=== PATIENT | female | born 1990 | race Hispanic/Latino ===

== ENCOUNTER 2019-08-10 12:35 | Emergency (ER) | payer SELFPAY ==
[~2019-08-10 12:35] MED LIST: Iopamidol-370 76% 500 ML 1 ML ONE
[2019-08-10 13:10] LABS: #Eosinphils 0.2 thou/uL (0.0-0.7); #Lymphocytes 2.1 thou/uL (1.20-3.40); #Monocytes 0.4 thou/uL (0.11-0.59); #Neutrophils 4.6 thou/uL (1.40-6.50); %Eosinophils 2.2 % (0.0-10.0); %Lymphocytes 29.3 % (21.0-51.0); %Monocytes 4.8 % (0.0-10.0); %Neutrophils 63.7 % (42.0-75.0); Hemoglobin 12.5 g/dL (12.0-16.0); Mean Corpuscular HGB CONC 34.1 g/dL (32.0-36.0); Mean Corpuscular Hemoglobin 28.8 pg (27.0-31.0); Mean Corpuscular Volume 84.4 fL (78.0-98.0); Mean Platelet Volume 7.5 fL (7.4-10.4); Platelet Count 303 thou/uL (130-400); RBC Distribution Width 13.3 % (11.5-14.5); Red Blood Cell (RBC) Count 4.34 mill/uL (4.20-5.40); White Blood Cell (WBC) Count 7.2 thou/uL (4.8-10.8)
[2019-08-10 13:26] LABS: ALT (SGPT) 23 U/L (8-55); AST (SGOT) 29 U/L (5-34); Alkaline Phosphatase 74 U/L (40-110); Anion Gap 10 mmol/L (10-20); BUN (Urea Nitrogen) 8 mg/dL (7.0-18.7); Bilirubin, Total 0.2 mg/dL (0.2-1.2); Calc. Creatinine Clearance 0 mL/min (70-130); Calcium 9.5 mg/dL (7.8-10.44); Carbon Dioxide 26 mmol/L (22-29); Chloride 106 mmol/L (98-107); Estimated GFR-MDRD Greater than 90; Globulin 3.4 g/dL (2.4-3.5); Glucose 112 mg/dL (70-105); Lipase 15 U/L (8-78); Potassium 3.9 mmol/L (3.5-5.1); Protein, Total 7.4 g/dL (6.0-8.3); Sodium 138 mmol/L (136-145)
[2019-08-10 14:17] LABS: Bilirubin Negative (Negative); Blood, Urine Negative (Negative); Clarity Clear (Clear); Glucose, Urine (Dipstick) Normal (Negative); Leukocyte 25 Leu/uL (Negative); Nitrite Negative (Negative); Protein, Urine (Dipstick) Negative (Neg-Trace); RBC/HPF 0-3 HPF (0-3); Squamous Epithelial 0-3 HPF (0-3); Urobilinogen Normal mg/dL (Less than 2)
[2019-08-10 14:18] LABS: Bacteria/HPF 1+ HPF (None Seen); Pregnancy Test - Urine (BHCG) Negative (Negative); Pregu Control Background? CLEAR/WHITE (CLR/WHITE); Pregu Control Bar Appear? YES (CONTROL BAR); Specific Gravity 1.005 (1.002-1.036)
--- NOTE | 2019-08-10 16:25 | CT ---
EXAM: CT ABDOMEN AND PELVIS HISTORY: Epigastric pain radiating to the back. Bloating. COMPARISON: None. Procedure: Multiple contiguous axial images were obtained and a CT of the abdomen and pelvis with IV contrast. C oronal reformats were performed. FINDINGS: Lower Chest: Indeterminate 0.5 x 0.4 cm nodule Vessels: Normal caliber aorta Heart: Normal heart size. Pericardial cysts along the right heart border measuring 1.4 x 2.6 cm. Abdomen: Portal vein:Patent Gallbladder: Retracted. Liver: Hypoattenuation likely due to hepatic steatosis. No enhancing masses. Pancreas: within normal limits. Spleen: within normal limits. Adrenals: within normal limits. Kidneys: Symmetric enhancement. No obstructive uropathy. Peritoneum: No ascites or free air, no fluid collection. Bowel: Limited evaluation due to the lack of oral contrast administration. No evidence of bowel obstr uction. Ileocecal junction is unremarkable. Normal caliber appendix. Scattered fecal material in a nondistended, nondilated colon. Mesentery and Retroperitoneum: Mildly enlarged right lower quadrant mesenteric lymph nodes. Correlate for mesenteric lymphadenitis. [employer] enlarged lymph node measures 0.8 x 1.3 cm. Abdominal Wall: Small ventral abdominal wall hernia containing mesenteric fat, the level the umbilicu s. Pelvis: Reproductive Organs: Uterus and adnexal structures are unremarkable. Pelvis: No mass, lymphadenopathy, free air or free fluid. Bladder: within normal limits. Bones: within normal limits. IMPRESSION: 1. Hepatic steatosis 2. Mildly enlarged mesenteric lymph nodes. Correlate for mesenteric lymphadenitis. 3. No evidence of bowel obstruction. Normal caliber appendix 4. Indeterminate nodule in the right lower lobe. Code lung nodule
[2019-08-10] MEDS ORDERED: Ketorolac Tromethamine 30 MG/ML VIAL ONE (16:34)
== END 2019-08-10 17:30 | disposition home or self-care (01) ==
LOC: ERS 12:35
DX: I88.0 Nonspecific mesenteric lymphadenitis (principal)
CPT/HCPCS: 36415; 74177; 80053; 81003; 81015; 81025; 83690; 85025; 96361; 96374; 96375; J1885; Q9967

== ENCOUNTER 2019-09-13 21:00 | Emergency (ER) | payer SELFPAY ==
[~2019-09-13 21:00] MED LIST changes: +Iopamidol 370 76% 100 ML VIAL ONE; -Iopamidol-370 76% 500 ML 1 ML ONE
[2019-09-13 21:48] LABS: Bilirubin Negative (Negative); Blood, Urine Negative (Negative); Clarity Clear (Clear); Glucose, Urine (Dipstick) Normal (Negative); Leukocyte Negative Leu/uL (Negative); Nitrite Negative (Negative); Protein, Urine (Dipstick) Negative (Neg-Trace); Urobilinogen Normal mg/dL (Less than 2)
[2019-09-13 23:32] LABS: #Lymphocytes 0.7 thou/uL (1.20-3.40); #Monocytes 0.6 thou/uL (0.11-0.59); #Neutrophils 4.3 thou/uL (1.40-6.50); %Eosinophils 0.8 % (0.0-10.0); %Monocytes 10.1 % (0.0-10.0); %Neutrophils 76.1 % (42.0-75.0); Hemoglobin 11.4 g/dL (12.0-16.0); Mean Corpuscular HGB CONC 34.1 g/dL (32.0-36.0); Mean Corpuscular Hemoglobin 28.7 pg (27.0-31.0); Mean Corpuscular Volume 84.3 fL (78.0-98.0); Mean Platelet Volume 7.2 fL (7.4-10.4); Platelet Count 264 thou/uL (130-400); RBC Distribution Width 13.3 % (11.5-14.5); Red Blood Cell (RBC) Count 3.99 mill/uL (4.20-5.40); White Blood Cell (WBC) Count 5.7 thou/uL (4.8-10.8)
[2019-09-13] MEDS ORDERED: Ondansetron PF 4 MG/2 ML Vial ONE (23:32)
[2019-09-13] MEDS ORDERED: Morphine 4 MG/ML VIAL ONE (23:32)
[2019-09-13 23:39] LABS: Pregnancy Test - Urine (BHCG) Negative (Negative); Pregu Control Background? CLEAR/WHITE (CLR/WHITE); Pregu Control Bar Appear? YES (CONTROL BAR); Specific Gravity 1.003 (1.002-1.036)
[2019-09-13] MEDS ORDERED: diphenhydrAMINE 50 MG/ML VIAL ONE (23:52)
[2019-09-13 23:53] LABS: ALT (SGPT) 23 U/L (8-55); AST (SGOT) 31 U/L (5-34); Albumin 3.7 g/dL (3.5-5.0); Alkaline Phosphatase 53 U/L (40-110); Anion Gap 13 mmol/L (10-20); BUN (Urea Nitrogen) 5 mg/dL (7.0-18.7); Bilirubin, Total 0.2 mg/dL (0.2-1.2); Calc. Creatinine Clearance 0 mL/min (70-130); Carbon Dioxide 26 mmol/L (22-29); Chloride 102 mmol/L (98-107); Estimated GFR-MDRD Greater than 90; Globulin 3.4 g/dL (2.4-3.5); Glucose 111 mg/dL (70-105); Lipase 7 U/L (8-78); Potassium 3.7 mmol/L (3.5-5.1); Protein, Total 7.1 g/dL (6.0-8.3); Sodium 137 mmol/L (136-145)
[2019-09-14] MEDS ORDERED: cefTRIAXone\\ROCEPHIN 250 MG VIAL ONE (00:02)
[2019-09-14] MEDS ORDERED: Azithromycin 250 MG TAB ONE (00:04)
[2019-09-14] MEDS ORDERED: Azithromycin 250 MG TAB PO SCH (00:15)
--- NOTE | 2019-09-14 00:33 | CT ---
CT OF THE ABDOMEN AND PELVIS WITH IV CONTRAST INDICATION: Fever and abdominal pain COMPARISON: August 10, 2019 FINDINGS: ABDOMEN: Lung bases: Clear Liver: Prominent fatty liver Gallbladder: Normal appearing. Pancreas: Normal. Adrenal glands: Normal. Spleen: Normal. Kidneys and ureters: Normal. No hydronephrosis. Vasculature: Normal. Lymph nodes:No lymphadenopathy. Free fluid in abdomen:No free fluid is evident. PELVIS: Small and large bowel: Normal Appendix:Normal Bladder: Normal. Rectal and perirectal soft tissues:Normal. Reproductive structures: There is a 3 cm cyst within the right adnexa. The remainder of the reproduct neda structures appear within normal limits. Free fluid in pelvis: No free fluid is evident. Lymphadenopathy pelvis: No lymphadenopathy is evident. Osseous structures: No acute osseous abnormality. No destructive osteolytic or osteoblastic lesion i s identified. Soft tissues:Normal. IMPRESSION: 1. No acute abnormality. 2. Stable fatty liver. 3. Right adnexal cyst
[2019-09-15 20:51] LABS: Chlamydia by PCR Not Detected (NotDetected); GC by PCR Not Detected (NotDetected)
== END 2019-09-14 01:13 | disposition home or self-care (01) ==
LOC: ERS 21:00
DX: N73.9 Female pelvic inflammatory disease, unspecified (principal); N83.201 Unspecified ovarian cyst, right side
CPT/HCPCS: 36415; 74177; 80053; 81003; 81025; 83690; 85025; 87480; 87491; 87510; 87591; 87660; 96365; 96375; J0696; J1200; J2270; J2405; Q9967

== ENCOUNTER 2020-06-02 17:49 | Emergency (ER) | payer OTHER, SELFPAY ==
[2020-06-02 18:49] LABS: #Eosinphils 0.1 thou/uL (0.0-0.7); #Lymphocytes 2.1 thou/uL (1.20-3.40); #Monocytes 0.4 thou/uL (0.11-0.59); #Neutrophils 4.6 thou/uL (1.40-6.50); %Eosinophils 1.6 % (0.0-10.0); %Lymphocytes 29.1 % (21.0-51.0); %Monocytes 5.9 % (0.0-10.0); %Neutrophils 63.4 % (42.0-75.0); Hemoglobin 11.1 g/dL (12.0-16.0); Mean Corpuscular HGB CONC 33.1 g/dL (32.0-36.0); Mean Corpuscular Hemoglobin 27.7 pg (27.0-31.0); Mean Corpuscular Volume 83.6 fL (78.0-98.0); Platelet Count 326 thou/uL (130-400); RBC Distribution Width 15.6 % (11.5-14.5); White Blood Cell (WBC) Count 7.3 thou/uL (4.8-10.8)
--- NOTE | 2020-06-02 19:04 | ULT ---
Exam: Transabdominal and endovaginal pelvic ultrasound HISTORY:Vaginal bleeding. patient. COMPARISON: None TECHNIQUE: Transabdominal and endovaginal imaging of the pelvis is performed. Ovaries are interrogate d with grayscale, color flow, Doppler imaging and spectral wave form analysis FINDINGS: Uterus: No myometrial masses. Uterus measurin.3 x 5.8 x 6.6 cm. Endometrium: Gestational sac, yolk sac and pole are present within the endometrium Femoral length: 1.47 cm, 7 weeks 6 days heart tones: 169 bpm Subchorionic hemorrhage: None. Free fluid: None Right ovary: Normal echotexture Right ovary measurement: 2.2 x 2.7 x 1.7 cm Left ovary: Hypoechoic focus measuring 1.4 x 1.8 x 1.7 cm may represent a involuting corpus luteal cy st Left ovary measurements: 3.4 x 2.2 x 2.7 cm Ovarian Doppler: There is vascular flow to the left and right ovary. IMPRESSION: Single intrauterine gestation with heart tones. Gestational age by crown-rump lengt h is 7 weeks 6 days.
[2020-06-02 19:31] LABS: Bilirubin Negative (Negative); Blood, Urine 3+ (Negative); Clarity Clear (Clear); Glucose, Urine (Dipstick) Normal (Negative); Ketone, Urine Negative (Negative); Leukocyte 25 Leu/uL (Negative); Nitrite Negative (Negative); Protein, Urine (Dipstick) Negative (Neg-Trace); Squamous Epithelial 0-3 HPF (0-3); Urobilinogen Normal mg/dL (Less than 2); WBC/HPF 0-3 HPF (0-3); pH, Urine 6.5 (5.0-9.0)
[2020-06-02 19:32] LABS: Bacteria/HPF 1+ HPF (None Seen)
== END 2020-06-02 20:19 | disposition home or self-care (01) ==
LOC: ERS 17:49
DX: O23.41 Unspecified infection of urinary tract in pregnancy, first trimester (principal); O20.9 Hemorrhage in early pregnancy, unspecified; Z3A.08 8 weeks gestation of pregnancy
CPT/HCPCS: 36415; 76856; 81003; 81015; 84702; 85025; 86900; 86901; 87086; 93976

== ENCOUNTER 2020-07-07 21:49 | Emergency (ER) | payer MEDICAID ==
[2020-07-07] MEDS ORDERED: Ondansetron ODT 4 MG TAB ONE (23:32)
[2020-07-08 00:16] LABS: Bacteria/HPF 4+ HPF (None Seen); Bilirubin Negative (Negative); Blood, Urine Negative (Negative); Clarity Clear (Clear); Glucose, Urine (Dipstick) Normal (Negative); Ketone, Urine Negative (Negative); Leukocyte 25 Leu/uL (Negative); Nitrite Negative (Negative); Protein, Urine (Dipstick) Negative (Neg-Trace); RBC/HPF 0-3 HPF (0-3); Specific Gravity, Urine 1.006 (1.002-1.036); Squamous Epithelial 0-3 HPF (0-3); Urobilinogen Normal mg/dL (Less than 2); WBC/HPF 0-3 HPF (0-3)
[2020-07-10 22:12] LABS: Chlamydia by PCR Not Detected (NotDetected); GC by PCR Not Detected (NotDetected)
[2020-07-10 22:12] LABS: Chlam.trachomatis by PCR,Urine Not Detected (NotDetected)
== END 2020-07-08 00:37 | disposition home or self-care (01) ==
LOC: ERS 21:49
DX: O23.42 Unspecified infection of urinary tract in pregnancy, second trimester (principal); O99.891 Other specified diseases and conditions complicating pregnancy; R51.9 Headache, unspecified; Z3A.14 14 weeks gestation of pregnancy
CPT/HCPCS: 81003; 81015; 87086; 87480; 87491; 87510; 87591; 87660; 99284; Q0162

== ENCOUNTER 2020-09-02 10:20 | Outpatient (CLI) | payer OTHER ==
--- NOTE | 2020-09-02 13:47 | ULT ---
OB ULTRASOUND: 09/02/20 COMPARISON: None. HISTORY: female. Evaluate size, dates, and anatomy. TECHNIQUE: Multiplanar giles scale and color Doppler images were obtained in a transabdominal ultrasound. Spectral analysis of the Doppler waveforms were performed. FINDINGS: There is a single live intrauterine with heart rate of 155 beats per minute. A survey was performed which is unremarkable. The heart, intracranial structures, heart, stomach, kidneys, um bilical cord, umbilical cord insertion, spine, face, and extremities were evaluated and were unremark able. Estimated weight is 569 grams. Average age of the fetus based off today's examination is 23 weeks, 2 days. The following measurements were taken and dates based on these measurements are as follows: BPD 5.6 cm 23 weeks, 3 days HC 20.75 cm 22 weeks, 6 days AC 18.73 cm 23 weeks, 4 days FL 3.97 cm 22 weeks, 6 days The cervix is normal in length. There is no evidence of placenta previa. The placenta is posterior in location without focal abnormality. The maternal ovaries cannot be definitely seen in the adnexal regions. IMPRESSION: Single live intrauterine with estimated age of 23 weeks, 2 days. POS: [facility]
== END 2020-09-02 10:21 | disposition home or self-care (01) ==
LOC: BICULT 10:20
PROVIDERS: ATTEND Family Medicine
DX: O09.892 Supervision of other high risk pregnancies, second trimester (principal); Z3A.23 23 weeks gestation of pregnancy
CPT/HCPCS: 76805

== ENCOUNTER 2022-04-24 08:29 | Outpatient (CLI) | payer OTHER | END 2022-04-24 08:30 | disposition home or self-care (01) | LOC: BICULT 08:29 | PROVIDERS: ATTEND Family Medicine | DX: O09.892 Supervision of other high risk pregnancies, second trimester (principal); Z3A.20 20 weeks gestation of pregnancy | CPT/HCPCS: 76805 ==

== ENCOUNTER 2022-12-21 15:26 | Emergency (ER) | payer OTHER, SELFPAY ==
[2022-12-21 16:28] LABS: #Eosinphils 0.2 thou/uL (0.0-0.7); #Monocytes 0.3 thou/uL (0.11-0.59); #Neutrophils 2.1 thou/uL (1.40-6.50); %Basophils 0.1 % (0.0-1.0); %Eosinophils 6.1 % (0.0-10.0); %Lymphocytes 28.3 % (21.0-51.0); %Monocytes 7.9 % (0.0-10.0); %Neutrophils 57.6 % (42.0-75.0); Hemoglobin 13.6 g/dL (12.0-16.0); Mean Corpuscular HGB CONC 33.5 g/dL (32.0-36.0); Mean Corpuscular Hemoglobin 29.8 pg (27.0-31.0); Mean Corpuscular Volume 89.1 fl (78.0-98.0); Mean Platelet Volume 7.5 fL (7.4-10.4); Platelet Count 268 10x3/uL (130-400); RBC Distribution Width 14.6 % (11.5-14.5); Red Blood Cell (RBC) Count 4.55 mill/uL (4.20-5.40); White Blood Cell (WBC) Count 3.6 10x3/uL (4.8-10.8)
[2022-12-21 16:32] LABS: Bilirubin Negative (Negative); Blood, Urine Negative (Negative); Clarity Clear (Clear); Glucose, Urine (Dipstick) Normal (Negative); Ketone, Urine Trace mg/dL (Negative); Leukocyte Negative Leu/uL (Negative); Nitrite Negative (Negative); Protein, Urine (Dipstick) Negative (Neg-Trace); Specific Gravity, Urine 1.017 (1.002-1.036); Urobilinogen Normal mg/dL (Less than 2); pH, Urine 6.5 (5.0-9.0)
[2022-12-21 16:34] LABS: Pregnancy Test - Urine (BHCG) Negative (Negative); Pregu Control Background? CLEAR/WHITE (CLR/WHITE); Pregu Control Bar Appear? YES (CONTROL BAR); Specific Gravity 1.017 (1.002-1.036)
[2022-12-21 17:21] LABS: ALT (SGPT) 50 U/L (8-55); AST (SGOT) 65 U/L (5-34); Albumin 3.8 g/dL (3.5-5.0); Alkaline Phosphatase 50 U/L (40-110); Anion Gap 15 mmol/L (10-20); BUN (Urea Nitrogen) 8 mg/dL (7.0-18.7); Bilirubin, Total 0.3 mg/dL (0.2-1.2); Calc. Creatinine Clearance 0 mL/min (70-130); Carbon Dioxide 21 mmol/L (22-29); Chloride 104 mmol/L (98-107); Estimated GFR 121; Globulin 3.1 g/dL (2.4-3.5); Glucose 95 mg/dL (70-105); Potassium 3.9 mmol/L (3.5-5.1); Protein, Total 6.9 g/dL (6.0-8.3); Sodium 136 mmol/L (136-145)
[2022-12-21] MEDS ORDERED: Ketorolac Tromethamine 30 MG/ML VIAL ONE ×2 (19:18→19:19)
[2022-12-21] MEDS ORDERED: predniSONE 20 MG TAB ONE (19:18)
== END 2022-12-21 20:30 | disposition home or self-care (01) ==
LOC: ERS 15:26
DX: B02.9 Zoster without complications (principal); D72.819 Decreased white blood cell count, unspecified
CPT/HCPCS: 36415; 80053; 81003; 81025; 85025; 96372; 99284; J1885; J7512

== ENCOUNTER 2024-09-10 12:59 | Emergency (ER) | payer SELFPAY ==
[2024-09-10] MEDS ORDERED: Boostrix 0.5 ML (Tdap) VIAL (>/=7 yrs of age) ONE (14:51)
== END 2024-09-10 14:57 | disposition home or self-care (01) ==
LOC: ERS 12:59
DX: S61.211A Laceration without foreign body of left index finger without damage to nail, initial encounter (principal); Z23 Encounter for immunization; W27.2XXA Contact with scissors, initial encounter
CPT/HCPCS: 12001; 90471; 90715